=== PATIENT | male | born 2000 | race African-American/Black ===

== ENCOUNTER 2021-09-04 19:13 | Emergency (ER) | payer SELFPAY ==
[~2021-09-04] VITALS: Ht 167.6 cm; Wt 63.0 kg
[2021-09-04 23:23] LABS: BASOPHILS % 0.4 % (0.0-2.0); EOSINOPHILS % 0.2 % (0.0-5.0); HEMATOCRIT. 43.6 % (42.0-52.0); HEMOGLOBIN. 14.9 g/dL (14.0-18.0); LYMPHOCYTES % 16.1 % (20.0-50.0); MEAN CORPUSCULAR HEMOGLOBIN 31.2 pg (28.0-32.0); MEAN CORPUSCULAR VOLUME 91.2 fL (80.0-94.0); MEAN PLATELET VOLUME 7.3 fl (7.4-10.4); MONOCYTES % 8.6 % (2.0-8.0); NEUTROPHILS % 74.7 % (40.0-76.0); PLATELET 436 x1000/uL (130-400); RED BLOOD CELL COUNT 4.78 mill/uL (4.7-6.1); RED CELL DISTRIBUTION WIDTH 13.1 % (11.6-14.6)
[2021-09-04 23:31] LABS: CHLORIDE 103 mEq/L (98-107)
[2021-09-04 23:38] LABS: ETHANOL BLOOD < 10 mg/dL
[2021-09-05 01:30] VITALS: BP 127/69
[2021-09-05 01:31] LABS: CLARITY URINE TURBID (CLEAR); COLOR URINE YELLOW (YELLOW); KETONES URINE 4+ (NEGATIVE); LEUKOCYTE ESTERASE URINE 1+ (NEGATIVE); NITRITE URINE NEGATIVE (NEGATIVE); OCCULT BLOOD URINE NEGATIVE (NEGATIVE); PROTEIN URINE 1+ (NEGATIVE); SPECIFIC GRAVITY URINE 1.027 (1.005-1.030)
[2021-09-05 01:49] LABS: *AMPHETAMINES SCREEN URINE PRESUMTIVE POSITIVE (NEGATIVE); *BARBITURATES SCREEN URINE NEGATIVE (NEGATIVE); *BENZODIAZEPINES SCREEN URINE NEGATIVE (NEGATIVE); *COCAINE SCREEN URINE NEGATIVE (NEGATIVE); CANNABINOID URINE SCREEN NEGATIVE (NEGATIVE); METHADONE URINE SCREEN NEGATIVE (NEGATIVE); OPIATES URINE SCREEN NEGATIVE (NEGATIVE); PHENCYCLIDINE URINE SCREEN NEGATIVE (NEGATIVE)
== END 2021-09-05 01:47 | disposition home or self-care (01) ==
LOC: ER 19:13
DX: R45.1 Restlessness and agitation (principal); F41.9 Anxiety disorder, unspecified
CPT/HCPCS: 36415; 80053; 80305; 80307; 80320; 80329; 81003; 85025; 93005; 99284; G0480

== ENCOUNTER 2022-02-17 14:07 | Emergency (ER) | payer MEDICAID ==
[~2022-02-17] VITALS: Ht 172.7 cm; Wt 54.0 kg
[2022-02-17] MEDS ORDERED: HALOPERIDOL LACTATE 5MG/ML VIAL IM STA (16:32)
[2022-02-17] MEDS ORDERED: DIPHENHYDRAMINE 50MG/ML VIAL IM STA (16:32)
[2022-02-17] MEDS ORDERED: LORAZEPAM 2MG/ML CPJ IM ONE (16:45)
[2022-02-17 16:53] LABS: BASOPHILS % 0.3 % (0.0-2.0); EOSINOPHILS % 0.1 % (0.0-5.0); HEMATOCRIT. 43.9 % (42.0-52.0); HEMOGLOBIN. 14.7 g/dL (14.0-18.0); MEAN CORPUSCULAR HEMOGLOBIN 31.2 pg (28.0-32.0); MEAN CORPUSCULAR VOLUME 93.3 fL (80.0-94.0); MEAN PLATELET VOLUME 7.5 fl (7.4-10.4); MONOCYTES % 14.4 % (2.0-8.0); NEUTROPHILS % 73.2 % (40.0-76.0); PLATELET 408 x1000/uL (130-400); RED CELL DISTRIBUTION WIDTH 13.9 % (11.6-14.6)
[2022-02-17 17:00] LABS: CHLORIDE 110 mEq/L (98-107)
[2022-02-17 17:07] LABS: ETHANOL BLOOD < 10 mg/dL
[2022-02-17] MEDS ORDERED: DIPHENHYDRAMINE 50MG/ML VIAL IM NR (19:51)
[2022-02-17] MEDS ORDERED: HALOPERIDOL LACTATE 5MG/ML VIAL IM NR (19:52)
[2022-02-17] MEDS ORDERED: LORAZEPAM 2MG/ML CPJ IM NR (19:54)
[2022-02-18 07:51] LABS: CLARITY URINE CLEAR (CLEAR); COLOR URINE YELLOW (YELLOW); KETONES URINE 1+ (NEGATIVE); LEUKOCYTE ESTERASE URINE NEGATIVE (NEGATIVE); NITRITE URINE NEGATIVE (NEGATIVE); OCCULT BLOOD URINE NEGATIVE (NEGATIVE); PH URINE 7.5 (4.5-8.0); PROTEIN URINE TRACE (NEGATIVE)
[2022-02-18 08:14] LABS: *AMPHETAMINES SCREEN URINE PRESUMTIVE POSITIVE (NEGATIVE); *BARBITURATES SCREEN URINE NEGATIVE (NEGATIVE); *BENZODIAZEPINES SCREEN URINE NEGATIVE (NEGATIVE); *COCAINE SCREEN URINE NEGATIVE (NEGATIVE); CANNABINOID URINE SCREEN PRESUMTIVE POSITIVE (NEGATIVE); METHADONE URINE SCREEN NEGATIVE (NEGATIVE); OPIATES URINE SCREEN NEGATIVE (NEGATIVE); PHENCYCLIDINE URINE SCREEN NEGATIVE (NEGATIVE)
[2022-02-18 16:30] VITALS: BP 128/79
[2022-02-18] MEDS: OLANZAPINE 5MG TABLET ODT PO SCH (17:37)
[2022-02-19] MEDS: OLANZAPINE 5MG TABLET ODT PO SCH (09:23)
== END 2022-02-19 15:17 | disposition home or self-care (01) ==
LOC: ER 14:07
DX: T43.651A Poisoning by methamphetamines accidental (unintentional), initial encounter (principal); F15.159 Other stimulant abuse with stimulant-induced psychotic disorder, unspecified; F60.3 Borderline personality disorder; R45.1 Restlessness and agitation; Y92.018 Other place in single-family (private) house as the place of occurrence of the external cause
CPT/HCPCS: 36415; 80053; 80307; 80320; 80329; 85025; 96372; 99285; J1200; J1630; J2060; Z7610; 80305; 81001; G0480